=== PATIENT | male | born 1985 | race African-American/Black ===

== ENCOUNTER → 2016-12-15 | Outpatient (REF) | payer OTHER ==
[2016-12-23 14:16] LABS: Size 4x3x2 mm (.)
== END ==
LOC: M SMT 13:48
PROVIDERS: ATTEND Urology
DX: N20.0 Calculus of kidney (principal)
CPT/HCPCS: 82360; G0463

== ENCOUNTER → 2016-12-17 | Outpatient (CLI) | payer OTHER ==
--- NOTE | 2016-12-18 04:36 | REP ---
Clinical: Nephrolithiasis. Comparison: None. Findings: Kidneys demonstrate bilateral nonobstructing calculi measuring up to approximately 6.5 mm. No perinephric stranding or hydroureteronephrosis and no obvious obstructing ureteral calculi. The bladder is unremarkable and without bladder stones. Liver, spleen, pancreas, gallbladder, and bilateral adrenal glands are normal for noncontrast evaluation. No evidence for bowel obstruction or acute inflammatory process. Moderate fecal stasis and constipation cannot be excluded. Normal appendix identified in the right lower quadrant. This demonstrates normal bladder and age appropriate prostate/seminal vesicles. No ascites. No free air. Surrounding musculoskeletal structures are intact. Lung bases clear. Visualized heart and pericardium normal. Impression: 1. Nephrolithiasis with bilateral calculi measuring up to 6.5 mm diameter. No associated hydroureteronephrosis. 2. Moderate fecal stasis and constipation cannot be excluded. Signed by Surjit Carney MD 12/18/2016 04:27 A
== END ==
LOC: M RAD 06:48 → EDUNIT# 07:30
PROVIDERS: ATTEND Urology
DX: N20.0 Calculus of kidney (principal)

== ENCOUNTER → 2017-01-17 | Outpatient (REF) | payer OTHER | LOC: M SFHCLERA 11:15 | PROVIDERS: ATTEND Nurse Practitioner Family | DX: J02.9 Acute pharyngitis, unspecified (principal) ==

== ENCOUNTER → 2017-02-03 | Outpatient (CLI) | payer OTHER ==
[2017-02-03 14:22] LABS: MEAN CORPUSCULAR HEMOGLOBIN 29.1 pg (27.0-33.0); MEAN CORPUSCULAR HGB CONC 34.4 g/dl (32.0-36.5); MEAN CORPUSCULAR VOLUME 84.8 fl (80.0-96.0); RED CELL DISTRIBUTION WIDTH 12.6 % (11.5-14.5); WHITE BLOOD COUNT 5.5 K/mm3 (4.0-10.0)
[2017-02-03 14:31] LABS: INR 1.03
[2017-02-03 14:58] LABS: ALBUMIN 4.6 GM/DL (3.2-5.2); ALBUMIN/GLOBULIN RATIO 1.59 (1.00-1.93); ALKALINE PHOSPHATASE 91 U/L (45-117); ALT/SGPT 42 U/L (12-78); ANION GAP 7 MEQ/L (8-16); AST/SGOT 38 U/L (15-37); BLOOD UREA NITROGEN 14 MG/DL (7-18); CALCIUM LEVEL 9.1 MG/DL (8.5-10.1); CARBON DIOXIDE LEVEL 26 MEQ/L (21-32); CHLORIDE LEVEL 105 MEQ/L (98-107); CREATININE FOR GFR 0.95 MG/DL (0.70-1.30); GLOMERULAR FILTRATION RATE > 60.0 (>60); GLUCOSE, FASTING 90 MG/DL (70-105); POTASSIUM SERUM 3.9 MEQ/L (3.5-5.1); SODIUM LEVEL 138 MEQ/L (136-145); TOTAL PROTEIN 7.5 GM/DL (6.4-8.2)
== END ==
LOC: M LAB 13:37
PROVIDERS: ATTEND Nurse Practitioner Family
DX: Z01.818 Encounter for other preprocedural examination (principal); N20.0 Calculus of kidney

== ENCOUNTER → 2017-02-06 | Day surgery (SDC) | payer OTHER ==
[~2017-02-06] VITALS: Ht 177.8 cm; Wt 64.4 kg
[~2017-02-06] MED LIST: CONRAY-60 60% 50ML VIAL (Q9961) As Ordered ONE; GLYCOPYRROLATE INJ 0.2 MG/ML 2 ML VIAL As Ordered ONE; HYDROmorphone HCL 2 MG/ML 1ML VIAL (J1170) As Ordered ONE; LIDOCAINE 2% INJ 100 MG/5 ML SDV (FOR ANES.) As Ordered ONE; LR 1,000 ML IV ONE; LR 1,000 ML IV SCH; MIDAZOLAM INJ 2 MG/2 ML VIAL (J2250) As Ordered ONE; ONDANSETRON 4MG/2ML VIAL (J2405) As Ordered ONE; ONDANSETRON 4MG/2ML VIAL (J2405) IV PRN; PERCOCET 5MG/325MG TAB PO PRN; PROPOFOL 500 MG/50 ML VIAL As Ordered ONE; dexameTHASONE 4 MG/ML 1ML VIAL (J1100) As Ordered ONE; ePHEDrine SULFATE 25 MG/5 ML(5MG/ML) SYRINGE As Ordered ONE; fentaNYL 100 MCG/2 ML INJECTION (J3010) As Ordered ONE; fentaNYL 100 MCG/2 ML INJECTION (J3010) IV PRN; oxyBUTYnin 5 MG TAB PO PRN
--- NOTE | 2017-02-06 14:33 | REP ---
C-ARM VIEW ABDOMEN AND PELVIS: C-arm view of the abdomen and pelvis is performed and demonstrates bilateral ureteral stents with the proximal ends coiled in the region of the renal pelvis bilaterally and the distal ends coiled in the region of the urinary bladder. 38 seconds of fluoroscopy time utilized. Signed by Kit Tilley MD 02/06/2017 05:24 P
[2017-02-06 15:30] VITALS: BP 137/93
--- NOTE | 2017-02-07 13:31 | RO ---
DATE OF PROCEDURE: 02/06/2017 PREPROCEDURE DIAGNOSIS: Bilateral kidney stones. POSTPROCEDURE DIAGNOSIS: Bilateral kidney stones. PROCEDURES: Cystoscopy, bilateral ureteroscopy with left-sided laser lithotripsy and bilateral basket extraction of stones, bilateral retrograde pyelogram with intraoperative interpretation of images, bilateral ureteral stent placement. SURGEON: Srinivasa Rockwell MD CHIEF PSYCHOLOGY: None. ANESTHESIA: General. OPERATIVE INDICATIONS: This is a 31-year-old male who on recent CAT scan was found to have multiple bilateral kidney stones with the largest in the left side measuring up 7-8 mm in size. The ones on the right measured around 4 mm in size at the largest. It was recommended he be brought to the operating room today for the above-listed procedure. DESCRIPTION OF PROCEDURE: The patient was brought to the operating room, and general anesthesia was induced. Prophylactic antibiotics were infused. He was then placed in the dorsal lithotomy position and prepped and draped in the usual sterile fashion. A rigid cystoscope was inserted into the urethral meatus and advanced into the bladder. Once within the bladder, a guidewire was advanced up the left collecting system. Over the wire, a ureteral access sheath was then advanced. The stylet was removed, and the wire was secured to the drape to serve as a safety wire. A flexible ureteroscope was advanced up the access sheath and within the left kidney, several stones were seen, with the largest measuring about 7 mm in size. The larger stones were fragmented into smaller pieces using a 200 micron laser fiber, and all of the fragments were removed with the basket. The remaining stones that were smaller were removed with the basket. We kept doing this until all of the stones were removed. Once this was done, a retrograde pyelogram was performed and was negative for hydronephrosis. The ureteroscope was then removed, along with the access sheath, and then the previously-placed wire was utilized to advance a 6-[place] x 22-32 cm double J ureteral stent up into the left collecting system. The wire was then removed, and there were adequate curls of the stent in the left renal pelvis and in the bladder. Next, I turned my attention to the right collecting system, and a wire was then advanced up the right collecting system. We then advanced the access sheath over the wire up into the right collecting system. The wire was then secured to the drape to serve as a safety wire. We then went into the right collecting system with the flexible ureteroscope, and it was thoroughly examined. Three stones were seen, measuring about 4 mm in size. The remainder of the stones were about 1 mm in size. The larger stones were removed with the basket. We kept doing this until there were no stones remaining other than very tiny pieces that should be small enough to pass. At this point, a retrograde pyelogram was performed and was negative for hydronephrosis. We then withdrew the ureteral access sheath, along with the ureteroscope. No stones were seen within the ureter. We then utilized the previously-placed wire to advance a 6-[place] x 22-32 cm double J ureteral stent up into the right collecting system. The wire was then removed, and there were adequate curls of the stent in the right renal pelvis and in the bladder. The bladder was then emptied of all fluid, and this marked the conclusion of the procedure. The patient was taken out of the dorsal lithotomy position, awakened from anesthesia, and transported to the recovery room in stable condition. ESTIMATED BLOOD LOSS: 0 mL. COMPLICATIONS: None. SPECIMENS: Kidney stones. PLAN: The patient will followup in the clinic in a week or two for stent removal. LAUREN
== END | disposition home or self-care (01) ==
LOC: M SDC 08:57
PROVIDERS: ATTEND Urology
DX: N20.0 Calculus of kidney (principal)
CPT/HCPCS: 52332; 52356; 74420; 82360; 88300; C1726; C1769; C1894; C2617; J0690; J1100; J1170; J2250; J2405; J3010; Q9961

== ENCOUNTER 2025-03-12 11:53 | Emergency (ER) | payer OTHER, SELFPAY ==
[~2025-03-12] VITALS: Ht 180.3 cm; Wt 77.6 kg
[2025-03-12] MEDS ORDERED: KETO-204 PO (13:04)
[2025-03-12] MEDS ORDERED: AMOX875T PO (13:05)
[2025-03-12 13:20] VITALS: BP 124/57; TEMP 97.6; O2SAT 98
== END 2025-03-12 13:26 | disposition home or self-care (01) ==
LOC: M ED 11:53
DX: K04.7 Periapical abscess without sinus (principal)